=== PATIENT | female | born 2000 | race Caucasian/White ===

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

== ENCOUNTER → 2021-12-08 | Outpatient (CLI) | payer MEDICAID, SELFPAY ==
[2021-12-08 12:23] LABS: HIV - WCH Non-Reactive (Nonreactive); Hepatitis B Surface Antigen Non-Reactive (Nonreactive); Hepatitis C Antibody Non-Reactive (Nonreactive); Syphilis Antibodies Non-reactive
[2021-12-09 09:43] LABS: HSV 1 IgG < 0.91 index (0.00-0.90); HSV 2 IgG < 0.91 index (0.00-0.90)
== END | disposition home or self-care (01) ==
DX: Z11.59 Encounter for screening for other viral diseases (principal)
CPT/HCPCS: 36415; 86695; 86696; 86703; 86780; 86803; 87340

== ENCOUNTER 2022-09-22 01:02 | Emergency (ER) | payer OTHER, SELFPAY ==
[2022-09-22] VITALS (8 sets, daily range): BP systolic 103–152; BP diastolic 58–101; PULSE 105–148; RESP 15–18; TEMP 36.3; O2SAT 97–100; BMI 26.5
--- NOTE | 2022-09-22 01:22 | EX.ED.CRITCA ---
HPI History of Present Illness Chief Complaint: Suicidal [facility] Medical History (Updated 09/22/22 @ 06:[address] Pineda Singh, ) Chest pain Diarrhea Fatigue Overdose SOB (shortness of breath) Weight loss Home Medications atomoxetine 40 mg capsule 40 mg PO DAILY 09/22/22 [History Last Taken Unknown] lorazepam 0.5 mg tablet 0.5 mg PO Q12H PRN anxiety 09/22/22 [History Last Taken Unknown] quetiapine 25 mg tablet 12.5 - 25 mg PO QHS 09/22/22 [History Last Taken Unknown] Allergy/AdvReac Type Severity Reaction Status Date / Time No Known Allergies Allergy Verified 09/22/22 01:04 Social History Smoking Status: Current every day smoker tobacco type: e-cigarettes EXAM Physical Exam Const Vital Signs: 09/22/22 01:05 09/22/22 05:09 09/22/22 06:09 Temperature 97.4 F L Temperature Source Temporal Pulse Rate 142 H 139 H 130 H Respiratory Rate 16 16 18 Blood Pressure 152/101 H 115/58 L Blood Pressure Mean 118 77 Pulse Ox 100 100 99 Oxygen Delivery Method Room Air MDM MDM MDM Narrative Medical decision making narrative: HISTORY OF PRESENT ILLNESS: 21-year-old female here with concern for overdose. States she took a handful of her prescribed Ativan. States she did this just prior to arrival secondary to someone in her home belittling her. She states at that time she did not feel like living however now she states she does not have any suicidal ideation, homicidal ideation, auditory visual hallucinations. Denies any symptoms of his abdominal pain. Notes she may have some vomit prior to arrival and think she is going to be okay. She is just here to be evaluated given the amount of medicine that she took REVIEW OF SYSTEMS: Pertinent positives: Attempted overdose Pertinent negatives: SI, HI, auditory or visual hallucinations PHYSICAL EXAM: Nursing triage notes reviewed, Vital signs reviewed Constitutional: please see mdm HENT: MMM Eyes: Pupils equal round and reactive to light, Extraocular muscles intact Neck: No stridor, no JVD, full neck ROM Lungs: Clear to auscultation, No wheezing or rales. No increased work of breathing, no conversational dyspnea, no accessory muscle use, no nasal flaring. No respiratory distress noted Heart: fast rate and rhythm, No murmurs, No rubs and No gallops, 2+ distal pulses (radial, femoral, posterior tibial) in all extremities Abdomen: Soft, there is no tenderness, rigidity, rebound or guarding, no obvious peritoneal signs, no palpable pulsatile abdominal masses, no auscultated abdominal bruit : No CVAT Extremities: No edema Neuro: No focal neurological deficits, cranial nerves II through XII intact, 5/5 strength in all extremities. Intact sensation to light touch in all extremities, 2+ reflexes bilateral patella tendons. Normal gait. No ataxia. Skin: No rash or lesions noted MEDICAL DECISION MAKING: Chief Complaint: Attempted overdose External records reviewed: Prior ED records reviewed: Last ED visit in 2019 for depression and suicidal ideation Factors affecting care: Depression, history of suicidal ideation Consults: Behavioral health social science teacher ALL IMAGES (IF OBTAINED) HAVE BEEN PERSONALLY REVIEWED AND INTERPRETED BY MYSELF. EKG with sinus tachycardia, normal axis, normal intervals, no STEMI MDM Narrative: Patient was initially tachycardic and hypertensive. Given she admitted to taking a handful of benzodiazepines I was concerned that she represented a risk of harm to herself. She denies any suicidal ideation, homicidal ideation auditory or visual hallucinations. She is very manipulative initially. She was moved to a monitored room. [place] slip was signed. Medical clearance labs were obtained. Patient EKG showed sinus tachycardia. Labs showed no evidence of coingestants, , significant electrolyte abnormalities or signs of severe anemia. Patient remained persistently tachycardic. Her drug screen was negative for benzodiazepines. Drug screen positive for MDMA. Her elevated heart rate is likely secondary to MDMA ingestion. Did give empiric benzodiazepines for symptomatic control. Heart rate improved after this intervention. The patient is appropriate for behavioral health evaluation. The patient is medically cleared. She was signed out to a.m. physician pending behavioral health evaluation and final disposition. The patient and/or family, caregivers express understanding. The patient and/or family, caregivers agrees with the plan. Shared decision making: I will have a discussion with the patient and or visitors regarding risk/benefits of further testing or admission. They will be made aware of of the risk/benefits inherent in this decision they will be given the opportunity to voice understanding. Total critical care time today provided was at least 0 minutes. This excludes separately billable procedures. Critical care time (if documented) is secondary to the patient having high probability of clinically significant/life threatening deterioration in the patient's condition which required my urgent intervention. Impression: Suicide attempt, attempted drug overdose, MDMA intoxication, tachycardia Disposition: Pending behavioral health evaluation Lab Data Lab results narrative: CBC with leukocytosis suggestive of systemic inflammation, no anemia or thrombocytopenia BMP without evidence of significant electrolyte abnormalities, no anion gap, no acute kidney injury. Urine test is negative Urine tox screen negative for benzodiazepines however positive for MDMA Serum alcohol negative Tylenol, salicylate level is negative Labs: Laboratory Results - last 24 hr 09/22/22 09/22/22 01:30 01:45 WBC 15.4 H RBC 4.61 Hgb 14.4 Hct 41.5 MCV 90.0 MCH 31.2 MCHC 34.7 RDW Std Deviation 37.5 RDW Coeff of Jeremiah 11.6 Plt Count 257 MPV 9.4 Immature Gran % (Auto) 0.400 Neut % (Auto) 75.2 H Lymph % (Auto) 16.2 L [place] % (Auto) 6.9 Eos % (Auto) 0.8 Baso % (Auto) 0.5 Absolute Neuts (auto) 11.6 H Absolute Lymphs (auto) 2.49 Nucleated RBC % 0 Sodium 137 Potassium 3.5 Chloride 106 Carbon Dioxide 27.0 Anion Gap 4 L BUN 10 Creatinine 0.82 Estim Creat Clear Calc 90.53 Est GFR (MDRD) Af Amer 113 Est GFR (MDRD) Non-Af 93 BUN/Creatinine Ratio 12.2 Glucose 122 H Calcium 9.2 Serum , Qual NEGATIVE Salicylates < 1.7 L Urine Opiates Screen NEGATIVE Urine Methadone Screen NEGATIVE Acetaminophen < 2.0 L Ur Barbiturates Screen NEGATIVE Ur Phencyclidine Scrn NEGATIVE Ur Amphetamines Screen NEGATIVE MDMA (Ecstasy) Screen POSITIVE H U Benzodiazepines Scrn NEGATIVE Urine Cocaine Screen NEGATIVE U Cannabinoids Screen NEGATIVE Ur Drug Screen Comment Ethyl Alcohol < 3.0 Discharge Plan Triage Chief Complaint: Suicidal Other Complaint: Overdose ED Provider: Pineda Singh Dx/Rx/DC Orders Clinical Impression: Suicide attempt by drug overdose, History of depression Prescriptions: No Action atomoxetine 40 mg capsule 40 mg PO DAILY lorazepam 0.5 mg tablet 0.5 mg PO Q12H PRN (Reason: anxiety) Patient Comments: TAKE 1 TABLET BY MOUTH TWICE A DAY NEEDED FOR ANXIETY quetiapine 25 mg tablet 12.5 - 25 mg PO QHS Patient Comments: TAKE 1/2 TO 1 TABLET BY MOUTH ONCE DAILY 30 MINUTES BEFORE BEDTIME Primary Care Provider: [facility] Helen Alfred Referrals: [facility] Helen Alfred [Primary Care Provider] -
--- NOTE | 2022-09-22 01:23 | EKG12_ITS ---
Test Reason : Dysrhythmia Blood Pressure : / mmHG Vent. Rate : 148 BPM Atrial Rate : 148 BPM P-R Int : 132 ms QRS Dur : 068 ms QT Int : 266 ms P-R-T Axes : 048 064 014 degrees QTc Int : 417 ms Sinus tachycardia Nonspecific ST abnormality Abnormal ECG Confirmed by FER STONE, LINK ([id number]), development editor SHELIA RENDON ([id number]) on 09/24/2022 8:52:20 AM Referred By: Samantha Confirmed By:MASOOD MONROE MD
[2022-09-22 01:58] LABS: Absolute Lymphocyte Count 2.49 X10^3/uL (0.83-4.51); Absolute Neutrophil Count 11.6 X10^3/uL (2.0-7.7); Basophil# 0.07 X10^3/uL; Basophil% 0.5 % (0-1); Eosinophil# 0.12 X10^3/uL; Eosinophils% 0.8 % (0-5); Hematocrit 41.5 % (37-47); Hemoglobin 14.4 g/dL (12.0-15.0); Lymphocyte # 2.49 X10^3/ul (0.83-4.51); Lymphocyte % 16.2 % (19-41); Mean Corp Hgb Conc 34.7 g/dL (32-36); Mean Corpuscular Hgb 31.2 pg (27.0-32.0); Mean Platelet Vol. 9.4 fl (6.2-12.0); Monocyte# 1.06 X10^3/uL; Monocyte% 6.9 % (0-10); NRBC Flagged by Analyzer 0 % (0-5); Neutrophil % 75.2 % (47-70); Platelet Count 257 K/mm3 (150-450); RBC Distribution Width CV 11.6 % (11.6-14.6); RBC Distribution Width SD 37.5 fl (35.1-43.9); Red Blood Count 4.61 M/mm3 (4.2-5.4); White Blood Count 15.4 K/mm3 (4.4-11.0)
[2022-09-22 02:00] LABS: Amphetamine Urine VISTA NEGATIVE (<1000 ng/mL); Barbiturate Urine VISTA NEGATIVE (< 200 ng/mL); Benzodiazepine Urine VISTA NEGATIVE (< 200 ng/mL); Cocaine Urine VISTA NEGATIVE (< 300 ng/mL); Ecstacy Urine VISTA POSITIVE (< 500 ng/mL); Methadone Urine VISTA NEGATIVE (< 300 ng/mL); PCP Urine VISTA NEGATIVE (< 25 ng/mL); THC Urine VISTA NEGATIVE (< 50 ng/mL); Vista UDS pH Range 5
[2022-09-22 02:09] LABS: Internal QC Validated? YES +Cl - CLEAR BKGD; Pregnancy, Serum, hCG Quali. NEGATIVE Negative
[2022-09-22 02:10] LABS: Anion Gap 4 (5-15); BUN 10 mg/dL (7-18); BUN/Creat Ratio 12.2 RATIO (10-20); Calcium,Total 9.2 mg/dL (8.5-10.1); Chloride 106 mmol/L (98-107); Creatinine, Serum 0.82 mg/dL (0.55-1.02); EST Glomerular Filtration Rate 93 mL/min (>60); Est Glom Filt Rate - Afr Amer 113 mL/min (>60); Estimated Creatinine Clearance 90.53 ml/min; Glucose 122 mg/dL (74-106); Potassium 3.5 mmol/L (3.5-5.1); Sodium Level 137 mmol/L (136-145)
--- NOTE | 2022-09-22 02:16 | ED.RN ---
DR LEOS INFORMED THIS NURSE OF PINK SLIPPING PT. THIS NURSE SPOKE TO PT, SHE BECAME IRATE AND STARTED ARGUING WITH NURSE. INFORMED OF PROCESS AND NEEDING TO REMOVE CLOTHES, SHE REFUSED. PD CALLED. WHEN ANOTHER NURSE AND WALKED IN, SHE BEGAN STATING THAT SHE DID NOT REFUSE. PT EXHIBITS VERY MANIPULATIVE BEHAVIORS.
[2022-09-22 02:18] LABS: Alcohol, Blood (Medical)-Serum < 3.0 mg/dL
--- NOTE | 2022-09-22 02:32 | ED.RN ---
[facility] CALLED IN, THEY NEED TO EVALUATE A PT AT [facility] THEN WILL BE UP.
[2022-09-22 03:05] LABS: Acetaminophen (Tylenol) Level < 2.0 ug/mL (10.0-30.0); Salicylate < 1.7 mg/dL (2.8-20.0)
--- NOTE | 2022-09-22 03:39 | ED.RN ---
PER PD, PT STATED TO THEM THEY TOOK 80 PILLS. WHILE THE PT WAS REFUSING TO REMOVE HER CLOTHES, SHE REPORTED TO THIS NURSE I LIED. I ONLY TOOK 6 PILLS.
--- NOTE | 2022-09-22 05:11 | ED.RN ---
BEING REFERRED TO RENA FERREIRA
[2022-09-22] MEDS: LORazepam 1 MG Tablet 2 MG PO (05:14)
--- NOTE | 2022-09-22 07:57 | NURSING ---
CALLED [facility], ETA IS 2 TO 3 HOURS
--- NOTE | 2022-09-22 07:59 | NURSING ---
DR MEEKS NOTIFIED OF PATIENT HAVING CONTINUOUS TACHYCARDIA, SINUS TACH W/ RATE 130'S. INCREASES ON STIMULATION TO RATES 150'S. NO FURTHER ORDERS.
--- NOTE | 2022-09-22 08:18 | ED.RN ---
REPORT CALLED TO KENDAL AT [facility] [phone], UPDATED ON ETA OF VIC WELL.
--- NOTE | 2022-09-22 12:50 | ED.RN ---
[facility] CALLED REQUESTING INFORMATION REGARDING PATIENT MENTAL STATUS. I RELAYED TO MYLA, WHO WAS NOT THE PERSON I CALLED INITIAL REPORT TO (KENDAL), THAT PATIENT CONTINUED TO SLOWLY IMPROVE OVER DURATION OF HAVING HER SINCE 0700, PATIENT DID CONTINUE TO BE DROWSY BUT AROUSABLE TO VERBAL AND A&OX2 FOR PAST HOUR OF HAVING HER. PATIENT WAS ABLE TO AMBULATE TO RR PRIOR TO DEPARTING WITH ASSISTANCE X2 PATIENT WAS STILL DROWSY.
== END 2022-09-22 10:46 ==
LOC: ED 02:42
PROVIDERS: Emergency Provider Emergency Medicine; Visit Provider Emergency Medicine
DX: T50.902A Poisoning by unspecified drugs, medicaments and biological substances, intentional self-harm, initial encounter (principal); F17.290 Nicotine dependence, other tobacco product, uncomplicated; F32.A Depression, unspecified; Z79.899 Other long term (current) drug therapy
CPT/HCPCS: 80048; 80307; 80329; 82077; 84703; 85025; 87811; 93005; 99285; G0480

== ENCOUNTER 2023-06-01 13:05 | Emergency (ER) | payer OTHER, SELFPAY ==
[2023-06-01 13:06] VITALS: BP 161/115; PULSE 128; RESP 16; TEMP 36.6; O2SAT 100; BMI 24.5
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
[2023-06-01] MEDS: Lidocaine 1% (20 ml mdv) 20 ML Vial INFILT (13:46)
[2023-06-01] MEDS: Lidocaine/Epi/Tetracaine 50 ML 1 APPLIC TOPICAL (14:16)
[2023-06-01 14:17] VITALS: BP 123/84; PULSE 98; RESP 16; TEMP 37; O2SAT 98
== END 2023-06-01 14:19 | disposition home or self-care (01) ==
PROVIDERS: Emergency Provider Emergency Medicine; Visit Provider Emergency Medicine
DX: S01.01XA Laceration without foreign body of scalp, initial encounter (principal); W22.8XXA Striking against or struck by other objects, initial encounter; F32.A Depression, unspecified; Z79.899 Other long term (current) drug therapy; F17.290 Nicotine dependence, other tobacco product, uncomplicated
CPT/HCPCS: 12002; 99283